=== PATIENT | female | born 2000 | race American Indian/Alaskan Native ===

== ENCOUNTER 2021-01-13 09:46 | Inpatient (IN) | payer MEDICAID, OTHER ==
--- NOTE | 2021-01-13 09:54 | Emergency Department Report ---
ED General Adult HPI - General Stated complaint: VAGINAL BLEEDING, ABD PAIN Time Seen by Provider: 01/13/21 09:53 ED Review of Systems ROS: Stated complaint: VAGINAL BLEEDING, ABD PAIN Other details as noted in HPI Critical care attestation.: If time is entered above; I have spent that time in minutes in the direct care of this critically ill patient, excluding procedure time. ED Disposition Condition: Stable
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
[2021-01-13] MEDS ORDERED: ACETAMINOPHEN W/CODEINE 300-30 MG TAB PO ONE (10:30)
--- NOTE | 2021-01-13 10:46 | Ultrasound Report ---
ULTRASOUND PELVIS INDICATION: pain and bleeding. TECHNIQUE: Transabdominal. Duplex Color Doppler used: Yes. COMPARISON: None available FINDINGS: Uterus: Present. Size: 10.2 x 4.5 x 5.7 cm. Endometrial complex: Mildly thickened measuring 1 cm. No intrauterine . Mass lesions: None. Additional findings: None. Right Ovary -- Normal. Blood flow: Normal. Cyst or mass: None. Left Ovary-- Normal. Blood flow: Normal. Cyst or mass: None. Urinary Bladder: Normal. Free Fluid: None. Additional Findings: None. IMPRESSION: 1. No intrauterine seen on transabdominal imaging. Patient refused transvaginal imaging. 2. No adnexal abnormality. Signer Name: Jeremisa Garcia MD Signed: 01/13/2021 10:42 AM Workstation Name: [id number]
[2021-01-13 10:52] LABS: Basophils % (Auto) 0.3 % (0.0-1.8); Eosinophils % (Auto) 0.1 % (0.0-4.3); Hemoglobin 9.3 gm/dl (10.1-14.3); Lymphocytes % (Auto) 11.9 % (13.4-35.0); Mean Corpuscular HGB Conc 32 % (30-34); Mean Corpuscular Volume 83 fl (79-97); Monocytes # (Auto) 1.4 K/mm3 (0.0-0.8); Platelet Count 318 K/mm3 (140-440); Red Cell Distribution Width 19.3 % (13.2-15.2)
[2021-01-13 12:00] LABS: Alanine Aminotransferase 6 units/L (7-56); Albumin 4.1 g/dL (3.9-5); Blood Urea Nitrogen 7 mg/dL (7-17); Hemolysis Index 0
[2021-01-13 12:10] LABS: BUN/Creatinine Ratio 14
[2021-01-13] MEDS ORDERED: ONDANSETRON 4 MG/2 ML INJ IV ONE (12:37)
[2021-01-13] MEDS ORDERED: HYDROmorphone 1 MG/1 ML INJ IV ONE (12:37)
[2021-01-13] MEDS ORDERED: SODIUM CHLORIDE 0.9% 1000 ML IV SOLN IV ONE (12:38)
[2021-01-13] MEDS ORDERED: ACETAMINOPHEN 325 MG TAB PO STA (12:39)
--- NOTE | 2021-01-13 12:41 | Emergency Department Report ---
ED General Adult HPI - General Chief complaint: Vaginal Bleeding Stated complaint: VAGINAL BLEEDING, ABD PAIN PUI?: No Time Seen by Provider: 01/13/21 09:53 Source: patient, RN notes reviewed Mode of arrival: Ambulatory Limitations: No Limitations - History of Present Illness Initial comments: The patient was evaluated in the emergency department for symptoms described in the history of present illness. He/she was evaluated in the context of the global COVID-19 pandemic, which necessitated consideration that the patient margarita ht be at risk for infection with the virus that causes COVID-19. Institutional protocols and algorithms that pertain to the evaluation of patients at risk for COVID-19 are in a state of rapid change based on information released by regulatory bodies including the CDC and federal and state organizations. These policies and algorithms were followed during the patient's care in the emergency department. Please note that these policies, procedures and recommendations changed on a rapid basis. During the history and physical examination, I am chaperoned by nurse Concepcion Mcduffie The patient is a 20-year-old female. She is not known to myself previously. She is 1, para 0. She thinks she is approximately 7 weeks . She does not have a private [employer] OPERATOR physician. She presents to the ER today with a complaint of painful vaginal bleeding. She has been having vaginal bleeding since last week. She reports being seen at [facility] last week, presumptively diagnosed with threatened miscarriage, and reports having had an ultrasound last week, which demonstrated an intr auterine . She presents today with persistent vaginal bleeding, "too many pads to count." Denies headache, neck pain, chest pain, shortness of breath, dysuria, loss of taste and smell. She also has diffuse lower abdominal pain. The pain is sharp and throbbing. It increases with palpation. It decreases with rest. She is not had any Covid exposure or contacts that she is aware of. -: Gradual, days(s) Location: abdomen Quality: aching Consistency: constant Improves with: rest Worsens with: movement - Related Data Allergies Allergy/AdvReac Type Severity Reaction Status Date / Time shellfish derived AdvReac Anaphylaxis Verified 01/13/21 09:57 ED Review of Systems ROS: Stated complaint: VAGINAL BLEEDING, ABD PAIN Other details as noted in HPI Constitutional: fever, malaise, weakness Eyes: denies: eye discharge ENT: denies: epistaxis Respiratory: denies: cough, shortness of breath Gastrointestinal: abdominal pain Genitourinary: abnormal menses, other (Vaginal bleeding). denies: dysuria Neurological: weakness Psychiatric: anxiety Hematological/Lymphatic: denies: easy bleeding ED Past Medical Hx - Past Medical History Previous Medical History?: No - Surgical History Past Surgical History?: No - Social History Smoking Status: Never Smoker Substance Use Type: Marijuana ED Physical Exam - General Limitations: No Limitations General appearance: alert, anxious, in distress, obese - Head Head exam: Present: atraumatic, normocephalic - Eye Eye exam: Present: normal appearance, EOMI. Absent: nystagmus - ENT ENT exam: Present: normal exam, normal orophraynx, mucous membranes moist, normal external ear exam - Neck Neck exam: Present: normal inspection, full ROM. Absent: tenderness, meningi smus - Respiratory Respiratory exam: Present: normal lung sounds bilaterally. Absent: respiratory distress, wheezes, rales, rhonchi, stridor, decreased breath sounds - Cardiovascular Cardiovascular Exam: Present: regular rate, tachycardia, normal heart sounds. Absent: bradycardia, irregular rhythm, systolic murmur, diastolic murmur, rubs, gallop - GI/Abdominal GI/Abdominal exam: Present: soft, tenderness, other (There is mild bilateral lower quadrant abdominal tenderness. Most prominent in the right lower quadrant). Absent: distended, guarding, rebound, rigid, pulsatile mass - External exam: Present: normal external exam, bleeding, other (Chaperoned by nurse Concepcion Mcduffie) Bi-manual exam: Present: cervical motion tendernes, adnexal tenderness, uterine tenderness - Extremities Exam Extremities exam: Present: normal inspection, full ROM, other (2+ pulses noted in the bilateral upper and lower extremities. There is no palpable cord. negative Homans sign. Muscular compartments are soft. The pelvis is stable.). Absent: pedal edema, calf tenderness - Back Exam Back exam: Present: normal inspection. Absent: tenderness, CVA tenderness (R), CVA tenderness (L), paraspinal tenderness, vertebral tenderness - Neurological Exam Neurological exam: Present: alert, other (No facial droop. Tongue midline. Extraocular movements intact bilaterally. Facial sensation intact to light touch in V1, V2, V3 distribution bilaterally. 5 and a 5 strength in 4 extremities. Sensation intact to light touch in 4 extremities.). Absent: motor sensory deficit - Psychiatric Psychiatric exam: Present: anxious - Skin Skin exam: Present: warm, dry, intact, normal color. Absent: rash ED Course Vital Signs 01/13/21 01/13/21 01/13/21 09:51 12:45 13:00 Temperature 101 F H Pulse Rate 123 H 90 107 H Respiratory 20 14 13 Rate Blood Pressure 110/74 112/59 O2 Sat by Pulse 97 100 100 Oximetry 01/13/21 01/13/21 01/13/21 13:02 13:33 13:45 Temperature Pulse Rate 107 H 123 H Respiratory 17 35 H 33 H Rate Blood Pressure 112/59 112/59 O2 Sat by Pulse 100 100 Oximetry 01/13/21 01/13/21 01/13/21 14:32 15:21 15:23 Temperature 99.9 F H Pulse Rate 109 H Respiratory 20 17 Rate Blood Pressure 112/59 O2 Sat by Pulse Oximetry - Reevaluation(s) Reevaluation #1: 01/13/21 13:04 Differential diagnosis, including but not limited to: Septic , appendicitis, urinary tract infection, intra-abdominal infection Assessment and plan: 20-year-old female, presenting with probable septic , manifest by no intrauterine on ultrasound, tachycardia, fever, and leukocytosis. As per recommendations from up-to-date, Zosyn is acceptable monotherapy antibiotic. Patient be resuscitated according to our sepsis pathway. She is amenable to transvaginal ultrasound, after appropriate counseling for myself. We will also obtain CT scan of the abdomen pelvis to exclude alternative pathology. Does not disclose any Covid symptomatology. Have discussed with Zoë, nursing medical office asst, working with our back strip machine operator, Dr. Garibay. They request call back once diagnostics have resulted. I have also discussed this plan of care with the patient, who articulated understanding, and who is amenable to the aforementioned interventions. Reevaluation #2: 01/13/21 14:31 CT scan abdomen pelvis negative for appendicitis. Retained products of conception are suggested. Have discussed with gynecology, Dr. Garibay. She is going to come by to evaluate the patient. She anticipates taking the patient to the operating room for dilatation and curettage. She requests infectious disease consult. 01/13/21 15:37 Dr Garibay to admit to her service Transvaginal ultrasound is reviewed and appreciated - Consultations Consultation #1: 01/13/21 15:01 Discussed the patient's history, physical, pertinent laboratory studies and imaging studies and clinical impression with infectious disease on-call, Dr. Hamilton. His group agrees to follow in consultation. They are also in agreement with Zosyn as monotherapy antibiotic. ED Medical Decision Making - Lab Data Result diagrams: 01/13/21 10:11 01/13/21 10:11 Vital Signs 01/13/21 01/13/21 01/13/21 09:51 12:45 13:02 Temperature 101 F H Pulse Rate 123 H 90 Respiratory 20 14 17 Rate Blood Pressure 110/74 O2 Sat by Pulse 97 100 Oximetry Lab Results 01/13/21 01/13/21 01/13/21 Range/Units 10:11 10:11 10:11 WBC 17.1 H (4.5-11.0) K/mm3 RBC 3.50 L (3.65-5.03) M/mm3 Hgb 9.3 L (10.1-14.3) gm/dl Hct 29.0 L (30.3-42.9) % MCV 83 (79-97) fl MCH 27 L (28-32) pg MCHC 32 (30-34) % RDW 19.3 H (13.2-15.2) % Plt Count 318 (140-440) K/mm3 Lymph % (Auto) 11.9 L (13.4-35.0) % Clark % (Auto) 8.0 H (0.0-7.3) % Eos % (Auto) 0.1 (0.0-4.3) % Baso % (Auto) 0.3 (0.0-1.8) % Lymph # (Auto) 2.0 (1.2-5.4) K/mm3 [place] # (Auto) 1.4 H (0.0-0.8) K/mm3 Eos # (Auto) 0.0 (0.0-0.4) K/mm3 Baso # (Auto) 0.0 (0.0-0.1) K/mm3 Seg Neutrophils % 79.7 H (40.0-70.0) % Seg Neutrophils # 13.7 H (1.8-7.7) K/mm3 Sodium 135 L (137-145) mmol/L Potassium 3.5 L (3.6-5.0) mmol/L Chloride 101.9 (98-107) mmol/L Carbon Dioxide 21 L (22-30) mmol/L Anion Gap 16 mmol/L BUN 7 (7-17) mg/dL Creatinine 0.5 L (0.6-1.2) mg/dL Estimated GFR > 60 ml/min BUN/Creatinine Ratio 14 % Glucose 113 H (65-100) mg/dL Lactic Acid (0.7-2.0) mmol/L Calcium 9.0 (8.4-10.2) mg/dL Total Bilirubin 0.40 (0.1-1.2) mg/dL AST 10 (5-40) units/L ALT 6 L (7-56) units/L Alkaline Phosphatase 76 (35-129) units/L Total Protein 7.4 (6.3-8.2) g/dL Albumin 4.1 (3.9-5) g/dL Albumin/Globulin Ratio 1.2 % Lipase 13 (13-60) units/L HCG, Quant 1296 H (0-4) mIU/mL Blood Type 01/13/21 01/13/21 Range/Units 10:11 10:11 WBC (4.5-11.0) K/mm3 RBC (3.65-5.03) M/mm3 Hgb (10.1-14.3) gm/dl Hct (30.3-42.9) % MCV (79-97) fl MCH (28-32) pg MCHC (30-34) % RDW (13.2-15.2) % Plt Count (140-440) K/mm3 Lymph % (Auto) (13.4-35.0) % Clark % (Auto) (0.0-7.3) % Eos % (Auto) (0.0-4.3) % Baso % (Auto) (0.0-1.8) % Lymph # (Auto) (1.2-5.4) K/mm3 Clark # (Auto) (0.0-0.8) K/mm3 Eos # (Auto) (0.0-0.4) K/mm3 Baso # (Auto) (0.0-0.1) K/mm3 Seg Neutrophils % (40.0-70.0) % Seg Neutrophils # (1.8-7.7) K/mm3 Sodium (137-145) mmol/L Potassium (3.6-5.0) mmol/L Chloride (98-107) mmol/L Carbon Dioxide (22-30) mmol/L Anion Gap mmol/L BUN (7-17) mg/dL Creatinine (0.6-1.2) mg/dL Estimated GFR ml/min BUN/Creatinine Ratio % Glucose (65-100) mg/dL Lactic Acid 0.70 (0.7-2.0) mmol/L Calcium (8.4-10.2) mg/dL Total Bilirubin (0.1-1.2) mg/dL AST (5-40) units/L ALT (7-56) units/L Alkaline Phosphatase (35-129) units/L Total Protein (6.3-8.2) g/dL Albumin (3.9-5) g/dL Albumin/Globulin Ratio % Lipase (13-60) units/L HCG, Quant (0-4) mIU/mL Blood Type AB POSITIVE - Radiology Data Radiology results: pending, report reviewed, image reviewed [facility] [address] [place] [address] Ultrasound Report Signed Patient: WYATT KELLY MR#: [id number] : 2000 Acct:[id number] Age/Sex: 20 / F ADM Date: 01/13/21 Loc: ED Attending Dr: Ordering Physician: LINDA INFANTE Date of Service: 01/13/21 Procedure(s): US OB <= 14 weeks fetus Accession Number(s): [id number] cc: LINDA INFANTE ULTRASOUND PELVIS INDICATION: pain and bleeding. TECHNIQUE: Trans abdominal. Duplex Color Doppler used: Yes. COMPARISON: None available FINDINGS: Uterus: Present. Size: 10.2 x 4.5 x 5.7 cm. Endometrial complex: Mildly thickened measuring 1 cm. No intrauterine . Mass lesions: None. Additional findings: None. Right Ovary -- Normal. Blood flow: Normal. Cyst or mass: None. Left Ovary-- Normal. Blood flow: Normal. Cyst or mass: None. Urinary Bladder: Normal. Free Fluid: None. Additional Findings: None. IMPRESSION: 1. No intrauterine seen on transabdominal imaging. Patient refused transvaginal imaging. 2. No adnexal abnormality. Signer Name: Jeremias Garcia MD Signed: 01/13/2021 10:42 AM Workstation Name: [id number] Transcribed By: ES Dictated By: Jeremias Garcia MD Electronically Authenticated By: Jeremias Garcia MD Signed Date/Time: 01/13/21 1042 [facility] [address] [place] [address] Cat Scan Report Signed Patient: WYATT KELLY MR#: [id number] : 2000 Acct:[id number] Age/Sex: 20 / F ADM Date: 01/13/21 Loc: ED Attending Dr: Ordering Physician: VANESSA AGRZON MD Date of Service: 01/13/21 Procedure(s): CT abdomen pelvis w con Accession Number(s): [id number] cc: VANESSA GARZON MD CT ABDOMEN AND PELVIS WITH CONTRAST INDICATION / CLINICAL INFORMATION: Right lower quadrant pain. TECHNIQUE: Axial CT images were obtained through the abdomen and pelvis after 100 cc of Omnipaque [address] scans at this location are performed using CT dose reduction for ALARA by means of automated exposure control. COMPARISON: None available. FINDINGS: LOWER CHEST: No significant abnormality. LIVER: No significant abnormality. GALLBLADDER: No significant abnormality. BILE DUCTS: No significant abnormality. PANCREAS: No significant abnormality. SPLEEN: No significant abnormality. ADRENALS: No significant abnormality. RIGHT KIDNEY / URETER: No significant abnormality. LEFT KIDNEY / URETER: No significant abnormality. STOMACH / SMALL BOWEL: No significant abnormality. COLON: No significant abnormality. APPENDIX: No significant abnormality. PERITONEUM: No free fluid. No free air. No fluid collection. LYMPH NODES: No significant adenopathy. AORTA / ARTERIES: No significant abnormality. IVC / VEINS: No significant abnormality. URINARY BLADDER: No significant abnormality. REPRODUCTIVE ORGANS: There is fluid in the endometrial cavity and endocervical canal. ADDITIONAL FINDINGS: None. SKELETAL SYSTEM: No significant abnormality. IMPRESSION: 1. There is no obstruction, inflammation, or free air. There are no abnormal fluid collections. The appendix is unremarkable. 2. There appears to be some fluid in the endometrial cavity and in the cervical canal. Signer Name: Brandan Jamison MD Signed: 01/13/2021 2:13 PM Workstation Name: [id number] Transcribed By: SS Dictated By: Brandan Jamison MD Electronically Authenticated By: Brandan Jamison MD Signed Date/Time: 01/13/21 1413 DD/ 1408 Critical Care Time: Yes Critical care time in (mins) excluding proc time.: 35 Critical care attestation.: If time is entered above; I have spent that time in minutes in the direct care of this critically ill patient, excluding procedure time. ED Disposition Clinical Impression: with sepsis, Miscarriage, Body mass index (BMI) of 50-59.9 in adult Disposition: DC-09 OP ADMIT IP TO THIS HOSP Is pt being admited?: Yes Does the pt Need Aspirin: No Condition: Serious Referrals: PRIMARY CAREMD [Primary Care Provider] - 3-5 Days
[2021-01-13] MEDS ORDERED: PIPERACIL/TAZOBACTA 4.5/NS 100 4.5 GM/100 ML VIAL IV ONE (12:52)
--- NOTE | 2021-01-13 14:18 | Cat Scan Report ---
CT ABDOMEN AND PELVIS WITH CONTRAST INDICATION / CLINICAL INFORMATION: Right lower quadrant pain. TECHNIQUE: Axial CT images were obtained through the abdomen and pelvis after 100 cc of Omnipaque [address] scans at this location are performed using CT dose reduction for ALARA by means of automated exposure control. COMPARISON: None available. FINDINGS: LOWER CHEST: No significant abnormality. LIVER: No significant abnormality. GALLBLADDER: No significant abnormality. BILE DUCTS: No significant abnormality. PANCREAS: No significant abnormality. SPLEEN: No significant abnormality. ADRENALS: No significant abnormality. RIGHT KIDNEY / URETER: No significant abnormality. LEFT KIDNEY / URETER: No significant abnormality. STOMACH / SMALL BOWEL: No significant abnormality. COLON: No significant abnormality. APPENDIX: No significant abnormality. PERITONEUM: No free fluid. No free air. No fluid collection. LYMPH NODES: No significant adenopathy. AORTA / ARTERIES: No significant abnormality. IVC / VEINS: No significant abnormality. URINARY BLADDER: No significant abnormality. REPRODUCTIVE ORGANS: There is fluid in the endometrial cavity and endocervical canal. ADDITIONAL FINDINGS: None. SKELETAL SYSTEM: No significant abnormality. IMPRESSION: 1. There is no obstruction, inflammation, or free air. There are no abnormal fluid collections. The a ppendix is unremarkable. 2. There appears to be some fluid in the endometrial cavity and in the cervical canal. Signer Name: Brandan Jamison MD Signed: 01/13/2021 2:13 PM Workstation Name: [id number]
--- NOTE | 2021-01-13 15:24 | Ultrasound Report ---
Pelvic Ultrasound HISTORY: Pelvic pain, vaginal bleeding. TECHNIQUE: Grayscale and color imaging performed. COMPARISON: Earlier today FINDINGS: Endovaginal imaging was performed. Endometrial echocomplex measures 1.2 cm. No intrauterine gestation identified. Both ovaries are vineet l in size with probable functional cyst on the left. No free fluid identified. IMPRESSION: 1. No intrauterine gestation identified. 2. Probable functional cyst in the left ovary. No pelvic free fluid identified on this exam. 3. Please see transabdominal exam from today for further details. Signer Name: Luc Quiroga MD Signed: 01/13/2021 3:20 PM Workstation Name: [id number]
--- NOTE | 2021-01-13 15:28 | History and Physical Report ---
History of Present Illness Date of examination: 01/13/21 Chief complaint: Pelvic pain vaginal bleeding History of present illness: This is a 20-year-old female 1 para 0 with a history of vaginal bleeding that started approximately 2 weeks ago. Patient was evaluated at [facility] December 28, 2019 at which time her blood test was 700. She had multiple visits thereafter with her last visit being January 08 where she was diagnosed with an intrauterine at 6 weeks and 2 days with a heart rate of 129 and a quantitative beta-hCG of 24,000. Patient states she has had persistent vaginal bleeding that became worse. She says she had sex approximately 1 to 2 weeks ago. Because of persistent bleeding and worsening of her pelvic pain she presented to [facility]. Her evaluation at this time is reveals a quantitative beta-hCG of approximately 1300, thickened tissue in the endometrium and cervix, elevated white blood cell count and a temperature of 101 C. Findings are concerning for septic . Patient is admitted now for evacuation of uterine tissue and IV antibiotics. Patient denies any instrumentation of the vagina or uterus. Past History Past Medical History: other (Asthma, anxiety) Past Surgical History: tonsillectomy Medications and Allergies Allergies Allergy/AdvReac Type Severity Reaction Status Date / Time shellfish derived AdvReac Anaphylaxis Verified 01/13/21 09:57 Review of Systems All systems: negative Genitourinary Female: pelvic pain, abnormal vaginal bleeding Exam - Constitutional Vitals: Temp Pulse Resp BP Pulse Ox 99.9 F H 109 H 17 112/59 100 01/13/21 15:23 01/13/21 15:21 01/13/21 15:21 01/13/21 15:21 01/13/21 13:45 - Abdominal Female genitourinary: Present: deferred (EUA however moderate blood noted on the vaginal probe at the end of the exam.) - Psychiatric Psychiatric: appropriate mood/affect, intact judgment & insight, memory intact, cooperative Results - Labs CBC & Chem 7: 01/13/21 10:11 01/13/21 10:11 Labs: Abnormal lab results 01/13/21 01/13/21 01/13/21 Range/Units 10:11 10:11 10:11 WBC 17.1 H (4.5-11.0) K/mm3 RBC 3.50 L (3.65-5.03) M/mm3 Hgb 9.3 L (10.1-14.3) gm/dl Hct 29.0 L (30.3-42.9) % MCH 27 L (28-32) pg RDW 19.3 H (13.2-15.2) % Lymph % (Auto) 11.9 L (13.4-35.0) % [place] % (Auto) 8.0 H (0.0-7.3) % [place] # (Auto) 1.4 H (0.0-0.8) K/mm3 Seg Neutrophils % 79.7 H (40.0-70.0) % Seg Neutrophils # 13.7 H (1.8-7.7) K/mm3 Sodium 135 L (137-145) mmol/L Potassium 3.5 L (3.6-5.0) mmol/L Carbon Dioxide 21 L (22-30) mmol/L Creatinine 0.5 L (0.6-1.2) mg/dL Glucose 113 H (65-100) mg/dL ALT 6 L (7-56) units/L HCG, Quant 1296 H (0-4) mIU/mL - Imaging and Cardiology CT scan - pelvis: report reviewed US - abdomen: report reviewed, image reviewed Assessment and Plan - Patient Problems (1) with sepsis Current Visit: Yes Status: Acute Plan to address problem: Diagnosis and plan of care discussed with patient. Uterine evacuation and cervical dilation explained. Discussed risk, including but not limited to, bleeding infection injury to her bowel bladder or adjacent organs. Also disc ussed possible uterine perforation and development of uterine adhesions that potentially could make becoming difficult. Also discussed options of observation with IV antibiotics how ever explained should she feel antibiotic therapy her condition could deteriorate significantly to the point where she may require hysterectomy in order to save her life. Questions were encouraged and answered. She voiced understanding and desires to proceed with surgical removal of tissue and admission for IV therapy. Consents were reviewed and signed. (2) Body mass index (BMI) of 50-59.9 in adult Current Visit: Yes Status: Acute (3) Miscarriage Current Visit: Yes Status: Acute
[2021-01-13] MEDS ORDERED: LACTATED RINGERS 1,000 ML ONE (15:49)
--- NOTE | 2021-01-13 15:58 | Anesthesia Day of Surgery ---
Anesthesia Day of Surgery - Day of Surgery Patient Examined: Yes Patient H&P Reviewed: Yes Patient is NPO: Yes (Rosie @ 0900. Sips of water > 2 hours ago)
[2021-01-13] MEDS ORDERED: dexAMETHasone 20 MG/5 ML VIAL ONE (16:02)
[2021-01-13] MEDS ORDERED: ONDANSETRON 4 MG/2 ML INJ ONE (16:02)
--- NOTE | 2021-01-13 16:02 | Anesthesia Consultation ---
Anesthesia Consult and Med Hx Date of service: 01/13/21 - Airway Anesthetic Teeth Evaluation: Chipped ROM Head & Neck: Adequate Mental/Hyoid Distance: Adequate Mallampati Class: Class II Intubation Access Assessment: Probably Good - Pre-Operative Health Status ASA Pre-Surgery Classification: ASA3, Emergency Proposed Anesthetic Plan: General - Pulmonary Hx Smoking: Yes (MJ) Hx Asthma: Yes (Stable) Hx Respiratory Symptoms: No - Cardiovascular System Hx Hypertension: No - Central Nervous System Hx Psychiatric Problems: Yes (Anxiety) - Gastrointestinal Hx Gastroesophageal Reflux Disease: No - Endocrine Hx Renal Disease: No Hx Non-Insulin Dependent Diabetes: No Hx Thyroid Disease: No - Hematic Hx Anemia: Yes Hx Sickle Cell Disease: No - Other Systems Hx Substance Use: Yes (MJ) Hx Obesity: Yes (BMI 50)
[2021-01-13] MEDS ORDERED: METHYLERGONOVINE MALEATE 0.2 MG/ML VIAL IM ONE ×2 (16:04→16:10)
[2021-01-13] MEDS ORDERED: SODIUM CHLORIDE 0.9% IRR 1,500 ML BOTTLE IR ONE (16:10)
[2021-01-13] MEDS ORDERED: ONDANSETRON 4 MG/2 ML INJ IV PRN (16:26)
[2021-01-13] MEDS ORDERED: HYDROmorphone 1 MG/1 ML INJ IV PRN (16:26)
[2021-01-13] MEDS: HYDROmorphone 1 MG/1 ML INJ IV PRN ×4 (16:30→17:00)
--- NOTE | 2021-01-13 16:53 | Operative Report ---
Operative Report Operative Report: PREOPERATIVE DIAGNOSES: 1. Septic 2. Body mass index 50 kg/m 3. Asthma 4. Anxiety 5. Anemia POSTOPERATIVE DIAGNOSES: 1. Septic 2. Body mass index 50 kg/m 3. Asthma 4. Anxiety 5. Anemia PROCEDURE PERFORMED: 1. Cervical dilation 2. Uterine vacuum aspiration ANESTHESIA: General ESTIMATED BLOOD LOSS: Less than 50 cc. INDICATIONS: This is a 20-year-old female that presents septic . PROCEDURE: The patient was seen in the preoperative suite. Expected procedure and postoperative course discussed with her. She was taken to the operative suite where general anesthesia was performed. She was placed in a dorsal lithotomy position. . A bimanual exam was done, the uterus was unable to be palpated due to body habitus.. She was prepped and draped in the normal sterile fashion. Timeout was performed. Her bladder was drained with the red Whiteside catheter which produced approximately 10 cc of clear yellow urine. The cervix and vagina were grossly normal with no obvious masses or deformities. A bivalve operative speculum was placed in the vagina and the anterior lip of the cervix was grasped with the single-tooth tenaculum. The uterus was sounded to ~9 cm. The cervix was progressively dilated to allow 9 mm curved Vacurette. The Vacurette was placed intrauterine very carefully using anterior wall for guidance. Using approximately 55 mmHg pressure, tissue was removed from the uterus. The specimen was collected and sent to pathology for evaluation, permanent. A culture was obtained from the products of conception and also sent to the laboratory. No evidence of perforation was noted. At this point procedure was ended. The single-tooth tenaculum and speculum were removed. The cervix was found to be hemostatic. Uterine massage was attempted to be performed. Methergine was given to ensure hemostasis. No vaginal bleeding was noted at the end of the procedure. Counts were correct. Patient was taken to the PACU stable. Tissue obtained with the Vacurette was sent to pathology for permanent evaluation.
--- NOTE | 2021-01-13 17:22 | Post Anesthesia Evaluation ---
- Post Anesthesia Evaluation Patient Participated: Yes Airway Patent: Yes Stable Respiratory Function: Yes Nausea/Vomiting: No Temp > 96.8F: Yes Pain Manageable: Yes Adequeate Hydration: Yes Anesthesia Complications: No Block Receding Appropriately: Not Applicable Patient on Ventilator: No
[2021-01-13] MEDS ORDERED: ONDANSETRON 4 MG ODT TAB PO PRN (17:49)
[2021-01-13] MEDS ORDERED: LACTATED RINGERS 1,000 ML IV SCH (17:49)
[2021-01-13] MEDS ORDERED: METOCLOPRAMIDE 10 MG TAB PO PRN (17:49)
[2021-01-13] MEDS ORDERED: MORPHINE 2 MG/1 ML INJ IV PRN (17:49)
[2021-01-13] MEDS: IBUPROFEN 800 MG TAB PO SCH (18:29)
[2021-01-13] MEDS ORDERED: diphenhydrAMINE 50 MG CAP PO NR (20:00)
[2021-01-13] MEDS: PIPERACIL/TAZOBACTA 4.5/NS 100 4.5 GM/100 ML VIAL IV SCH (23:38)
[2021-01-13] MEDS: oxyCODONE /ACETAMINOPHEN 5-325MG TAB PO SCH (23:45)
[2021-01-14] MEDS: oxyCODONE /ACETAMINOPHEN 5-325MG TAB PO SCH ×2 (02:30→08:38)
[2021-01-14 04:38] LABS: Basophils % (Auto) 0.5 % (0.0-1.8); Eosinophils % (Auto) 0.2 % (0.0-4.3); Hematocrit 27.7 % (30.3-42.9); Hemoglobin 9.3 gm/dl (10.1-14.3); Lymphocytes % (Auto) 11.5 % (13.4-35.0); Mean Corpuscular HGB Conc 34 % (30-34); Mean Corpuscular Volume 82 fl (79-97); Monocytes % (Auto) 3.9 % (0.0-7.3); Platelet Count 307 K/mm3 (140-440); Red Blood Count 3.36 M/mm3 (3.65-5.03); Red Cell Distribution Width 19.7 % (13.2-15.2)
[2021-01-14 04:39] LABS: Basophils # (Auto) 0.1 K/mm3 (0.0-0.1); Lymphocytes # (Auto) 1.2 K/mm3 (1.2-5.4); Monocytes # (Auto) 0.4 K/mm3 (0.0-0.8)
[2021-01-14] MEDS: IBUPROFEN 800 MG TAB PO SCH ×2 (04:44→16:17)
[2021-01-14 05:04] LABS: Bilirubin,Urine NEG (Negative); Blood,Urine LG (Negative); Color,Urine Yellow (Yellow); Mucus,Urine FEW /HPF; Urobilinogen,Urine < 2.0 mg/dL (<2.0)
[2021-01-14 05:05] LABS: RBC,Urine > 182.0 /HPF (0.0-6.0)
[2021-01-14] MEDS: PIPERACIL/TAZOBACTA 4.5/NS 100 4.5 GM/100 ML VIAL IV SCH ×2 (07:52→16:17)
--- NOTE | 2021-01-14 10:09 | Progress Note ---
Assessment and Plan - Patient Problems (1) with sepsis Current Visit: Yes Status: Acute Plan to address problem: Informed she will probably be allowed home tomorrow if afebrile and tolerating po. She voiced understanding (2) Body mass index (BMI) of 50-59.9 in adult Current Visit: Yes Status: Acute (3) Miscarriage Current Visit: Yes Status: Acute Subjective Date of service: 01/14/21 Patient Reports: Positive: no new complaints, feels better, tolerating a regular diet, voiding w/o difficulty Objective Vital Signs - 12hr 01/13/21 01/14/21 01/14/21 23:45 00:30 04:00 Temperature 98.6 F 98 F Pulse Rate 73 74 Respiratory 18 16 16 Rate Blood Pressure Blood Pressure 106/78 112/75 [Left] O2 Sat by Pulse Oximetry 01/14/21 01/14/21 04:44 07:47 Temperature 97.9 F Pulse Rate 88 Respiratory 18 18 Rate Blood Pressure 141/84 Blood Pressure [Left] O2 Sat by Pulse 99 Oximetry - Labs 01/14/21 04:22 01/13/21 10:11 Diabetes panel 01/13/21 Range/Units 10:11 Sodium 135 L (137-145) mmol/L Potassium 3.5 L (3.6-5.0) mmol/L Chloride 101.9 (98-107) mmol/L Carbon Dioxide 21 L (22-30) mmol/L BUN 7 (7-17) mg/dL Creatinine 0.5 L (0.6-1.2) mg/dL Glucose 113 H (65-100) mg/dL Calcium 9.0 (8.4-10.2) mg/dL AST 10 (5-40) units/L ALT 6 L (7-56) units/L Alkaline Phosphatase 76 (35-129) units/L Total Protein 7.4 (6.3-8.2) g/dL Albumin 4.1 (3.9-5) g/dL Calcium panel 01/13/21 Range/Units 10:11 Calcium 9.0 (8.4-10.2) mg/dL Albumin 4.1 (3.9-5) g/dL Pituitary panel 01/13/21 Range/Units 10:11 Sodium 135 L (137-145) mmol/L Potassium 3.5 L (3.6-5.0) mmol/L Chloride 101.9 (98-107) mmol/L Carbon Dioxide 21 L (22-30) mmol/L BUN 7 (7-17) mg/dL Creatinine 0.5 L (0.6-1.2) mg/dL Glucose 113 H (65-100) mg/dL Calcium 9.0 (8.4-10.2) mg/dL Adrenal panel 01/13/21 Range/Units 10:11 Sodium 135 L (137-145) mmol/L Potassium 3.5 L (3.6-5.0) mmol/L Chloride 101.9 (98-107) mmol/L Carbon Dioxide 21 L (22-30) mmol/L BUN 7 (7-17) mg/dL Creatinine 0.5 L (0.6-1.2) mg/dL Glucose 113 H (65-100) mg/dL Calcium 9.0 (8.4-10.2) mg/dL Total Bilirubin 0.40 (0.1-1.2) mg/dL AST 10 (5-40) units/L ALT 6 L (7-56) units/L Alkaline Phosphatase 76 (35-129) units/L Total Protein 7.4 (6.3-8.2) g/dL Albumin 4.1 (3.9-5) g/dL
--- NOTE | 2021-01-14 13:13 | Consultation ---
History of Present Illness - Reason for Consult Consult date: 01/14/21 Septic Requesting physician: VANESSA GARZON - History of Present Illness The patient is a 20-year-old female admitted to the hospital with pelvic pain and vaginal bleeding, she was recently . Noted to have fever. Admitted with concerns of septic . Started on IV Zosyn. ID was consulted for antibiotic recommendations. Yesterday evening, she underwent cervical dilation and uterine vacuum aspiration. She is afebrile today and feels well today. Past History Past Medical History: other (Asthma, anxiety) Past Surgical History: tonsillectomy Medications and Allergies Allergies Allergy/AdvReac Type Severity Reaction Status Date / Time shellfish derived AdvReac Anaphylaxis Verified 01/13/21 09:57 Active Meds: Active Medications Acetaminophen (Acetaminophen 500 Mg Tab) 1,000 mg PO Q6H PRN PRN Reason: Pain Mild (1-3)/FEVER>100.5/FERMIN Lactated Ringer's (Lactated Ringers) 1,000 mls @ 75 mls/hr IV DIRECT PAOLA Last Admin: 01/14/21 04:43 Dose: 75 mls/hr Documented by: Piperacillin Sod/Tazobactam Sod (Zosyn/Ns 4.5gm/100ml) 4.5 gm in 100 mls @ 200 mls/hr IV Q8HR PAOLA; Protocol Last Admin: 01/14/21 07:52 Dose: 200 mls/hr Documented by: Ibuprofen (Ibuprofen 800 Mg Tab) 800 mg PO Q8H PRN PRN Reason: Pain, Mild (1-3) Metoclopramide HCl (Metoclopramide 10 Mg Tab) 10 mg PO Q6H PRN PRN Reason: Nausea And Vomiting Ondansetron HCl (Ondansetron 4 Mg Odt Tab) 4 mg PO Q8H PRN PRN Reason: Nausea And Vomiting Physical Examination - Physical Exam Narrative exam: Physical Exam: Constitutional: Alert, cooperative. No acute distress Head, Ears, Nose: Normocephalic, atraumatic. External ears, nose normal Eyes: Conjunctivae/corneas clear. No icterus. No ptosis. Neck: Supple, no meningeal signs Cardiovascular: S1, S2 normal. Respiratory: Good air entry, clear to auscultation bilaterally GI: Soft, non-tender; bowel sounds normal. No peritoneal signs Musculoskeletal: No pedal edema, no cyanosis. Skin: No rash or abscess Hem/Lymphatic: No palpable cervical or supraclavicular nodes. No lymphangitis Psych: Mood ok. Affect normal Neurological: Awake, alert, oriented. No gross abnormality - Constitutional Vitals: Vital Signs Temp Pulse Resp BP Pulse Ox 97.9 F 88 18 141/84 99 01/14/21 07:47 01/14/21 07:47 01/14/21 07:47 01/14/21 07:47 01/14/21 07:47 Temperature -Last 24 Hours Temperature 97.9 F Temperature 98 F Temperature 98.6 F Temperature 98.0 F Temperature 98.2 F Temperature 98.4 F Temperature 97.3 F Temperature 99.9 F Results - Labs CBC & Chem 7: 01/14/21 04:22 01/13/21 10:11 Labs: Abnormal lab results 01/14/21 01/14/21 Range/Units 04:22 04:39 RBC 3.36 L (3.65-5.03) M/mm3 Hgb 9.3 L (10.1-14.3) gm/dl Hct 27.7 L (30.3-42.9) % RDW 19.7 H (13.2-15.2) % Lymph % (Auto) 11.5 L (13.4-35.0) % Seg Neutrophils % 83.9 H (40.0-70.0) % Seg Neutrophils # 8.6 H (1.8-7.7) K/mm3 Ur Specific [place] 1.044 H (1.003-1.030) Urine WBC (Auto) 55.0 H (0.0-6.0) /HPF Assessment and Plan Cultures: 01/13/2021 blood culture: No growth A/P: 20/F with recent , now with: #Sepsis/septic : Status post cervical dilatation and uterine vacuum aspiration on 01/13/2021. Leukocytosis resolved. Clinically doing well. Recs: -Continue IV Zosyn for now -If afebrile and blood cultures negative tomorrow, okay to discharge on p.o. Augmentin 875 mg twice daily for 5 days ID will sign off. Please call with questions. Gareth Hamilton MD, FACP [facility] ([facility] O: [phone] F: [phone]
--- NOTE | 2021-01-14 15:31 | Event Note ---
Date: 01/14/21 received call from rn that patient absconded from unit and was reported to be at [employer] getting food. Patient was allowed back on unit by hospital staff. Pt is now asking for pain medication and medication for depression. Order entered for psych consult. Patient states " I just needed some fresh air, I didn't know I couldnt leave." Advised patient if she leaves again, she will be discharged AMA. She can have Motrin for pain. pt has no additional questions. support person at bs.
[2021-01-14] MEDS ORDERED: ACETAMINOPHEN 325 MG TAB PO PRN (16:36)
[2021-01-14] MEDS ORDERED: IBUPROFEN 800 MG TAB PO PRN (16:36)
[2021-01-14] MEDS ORDERED: oxyCODONE /ACETAMINOPHEN 5-325MG TAB PO PRN (16:36)
[2021-01-14] MEDS: ACETAMINOPHEN 500 MG TAB PO PRN (21:44)
[2021-01-15] MEDS: PIPERACIL/TAZOBACTA 4.5/NS 100 4.5 GM/100 ML VIAL IV SCH (00:04)
[2021-01-15 08:57] VITALS: BP 107/55
--- NOTE | 2021-01-15 09:15 | Consultation ---
History of Present Illness - Reason for Consult Consult date: 01/15/21 Reason for consult: MHE Requesting physician: ROZ MCCLELLAN - Chief Complaint Chief complaint: Pelvic pain vaginal bleeding - History of Present Psychiatric Illness Per OBGYN NOte: received call from rn that patient absconded from unit and was reported to be at [employer] getting food. Patient was allowed back on unit by hospital staff. Pt is now asking for pain medication and medication for depress ion. Order entered for psych consult. Patient states " I just needed some fresh air, I didn't know I couldnt leave." Advised patient if she leaves again, she will be discharged AMA. She can have Motrin for pain. pt has no additional questions. support person at bs. PSYCH HPI Patient is a single, unemployed -[place] female with past psychiatric history of ADHD, bipolar and depression and past medical history of asthma who was admitted to the [facility] service due to miscarriage with subsequent psychiatric consult requested for depression. Patient reported that this was her first since the incident where she was told that she was depressed she just has been feeling very down and sad about the event. Patient denies that she is no suicidal ideation homicidal or having auditory or visual hallucinations, she just wanted to be started on something for depression so that she can feel better. Patient states that her current support system is her girlfriend who was present at patient bedside and also her mom was being they are supportive. Patient endorses eating and sleeping well, denies any night disturbances or any hallucinations. PAST PSYCHIATRIC HISTORY Diagnoses: ADHD, bipolar, depression Suicide attempts or Self-harm behavior: None report Prior psychiatric hospitalizations: None report Substance Abuse history: Marijuana Previous psychiatric medications tried: Adderall Outpatient treatment: None reported PAST MEDICAL HISTORY: Asthma Family Psychiatric History: None reported or documented SOCIAL HISTORY Marital Status: Single Living Arrangements: With partner Employment Status: Unemployed Access to guns/weapons: None reported Education: 11th grade History of Abuse: None Legal History: None report REVIEW OF SYSTEMS Constitutional: Negative for weight loss ENT: Negative for stridor Respiratory: Negative for cough or hemoptysis All other systems reviewed and are negative MENTAL STATUS EXAMINATION General Appearance and Behavior: Age appropriate, good hygiene, wearing appropriate clothes, good eye contact, cooperative polite with questioning. Cooperation: Participating/engaged Psychomotor Behavior: unremarkable and within normal limits Mood: depressed Affect and affective range: congruent with mood Thought Process: Fluent/Logical, Thought Content: Within reality, Speech: Normal volume, Regular rate and rhythm, Intellectual Functioning: Average Suicidal Ideation: Denies SI Homicidal Ideation: Denies HI Impulse Control: Unimpaired Insight and Judgment: Normal insight and judgment, Memory: Normal, Attention: Normal, Orientation: Alert, oriented, Assessment and Plan - Psychiatric problem (1) Cognitive and behavioral changes Current Visit: Yes Status: Acute F43.21 Treatment Plan MEDICATIONS: Risks, benefits and alternatives of medications discussed with the patient, questions answered and consent obtained from patient. PSYCHOTHERAPY: Supportive psychotherapy provided MEDICAL: Per primary team DELIRIUM PRECAUTIONS: Please re-orient patient frequently, keep lights on during the day, and minimize benzodiazepines and opiates as these medications could wo rsen patient's confusion. 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 Case discussed with Dr. Donaldson who agrees with current disposition LEGAL STATUS: Voluntary FOLLOW-UP: Will sign off Thank you for the consult. Please contact with any questions and/or concerns. Medications and Allergies Allergies Allergy/AdvReac Type Severity Reaction Status Date / Time shellfish derived AdvReac Anaphylaxis Verified 01/13/21 09:57 Home Medications Medication Instructions Recorded Confirmed Last Taken Type Amoxicillin/K Clav Tab [Augmentin 1 tab PO Q12HR #10 tab 01/14/21 Unknown Rx 875 mg] Ibuprofen [Motrin 800 MG tab] 800 mg PO TID PRN #30 tablet 01/14/21 Unknown Rx Sertraline [Zoloft] 50 mg PO QDAY #30 tablet 01/15/21 Unknown Rx Active Meds: Active Medications Acetaminophen (Acetaminophen 500 Mg Tab) 1,000 mg PO Q6H PRN PRN Reason: Pain Mild (1-3)/FEVER>100.5/FERMIN Last Admin: 01/14/21 21:44 Dose: 1,000 mg Documented by: Lactated Ringer's (Lactated Ringers) 1,000 mls @ 75 mls/hr IV DIRECT PAOLA Last Admin: 01/14/21 04:43 Dose: 75 mls/hr Documented by: Piperacillin Sod/Tazobactam Sod (Zosyn/Ns 4.5gm/100ml) 4.5 gm in 100 mls @ 200 mls/hr IV Q8HR PAOLA; Protocol Last Admin: 01/15/21 00:04 Dose: 200 mls/hr Documented by: Ibuprofen (Ibuprofen 800 Mg Tab) 800 mg PO Q8H PRN PRN Reason: Pain, Mild (1-3) Last Admin: 01/15/21 06:27 Dose: 800 mg Documented by: Metoclopramide HCl (Metoclopramide 10 Mg Tab) 10 mg PO Q6H PRN PRN Reason: Nausea And Vomiting Ondansetron HCl (Ondansetron 4 Mg Odt Tab) 4 mg PO Q8H PRN PRN Reason: Nausea And Vomiting Mental Status Exam - Vital signs Last Vital Signs Temp 98.0 F 01/15/21 07:58 Pulse 77 01/15/21 07:58 Resp 18 01/15/21 07:58 BP 107/55 01/15/21 07:58 Pulse Ox 100 01/15/21 07:58 Results Result Diagrams: 01/14/21 04:22 01/13/21 10:11 All other labs normal. Assessment and Plan - Psychiatric problem (1) Dysfunctional grieving Current Visit: Yes Status: Acute
[2021-01-15] MEDS ORDERED: SERTRALINE 50 MG TAB PO SCH (11:00)
[2021-01-15] MEDS: ACETAMINOPHEN 500 MG TAB PO PRN (12:19)
--- NOTE | 2021-01-15 13:07 | Discharge Summary ---
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 Patient was admitted underwent the above procedure performed by Dr. Garibay without any complications. Patient will be discharged with follow-up in office in 1-2 weeks for postop check. My surgery discharge Patient was admitted and underwent above procedure performed by Dr. Garibay without complications. During her post operative course, the patient received IV antibiotics and a psychiatric consult was done due to the patient possible depression. The patient was cleared from psychiatric standpoint for discharge. Patient had no orthostatic symptoms. Patient was tolerating regular diet and voiding without difficulty at time of discharge. Disposition: DC-01 TO HOME OR SELFCARE Final Discharge Diagnosis (Prints w/discharge instructions): septic Time spent for discharge: 15 minutes - Discharge Diagnoses (1) with sepsis Status: Acute (2) Anxiety Status: Chronic Core Measure Documentation - Palliative Care Palliative Care/ Comfort Measures: Not Applicable - Core Measures Any of the following diagnoses?: none - VTE Discharge Requirements Deep Vein Thrombosis/Pulmonary Embolism Present on Admission: No Has pt received <5 days of overlap therapy or INR<2.0: No - Acute [place] Discharge Requirements Aspirin at discharge: No Reason for no aspirin on DC: Bleeding MG/ARB for LVSD if EF <40%: Not Applicable Beta kristal at discharge: No Reason for no beta kristal on DC: Medical contraindication Statin for LDL = or >100 mg/dl on DC: Not Applicable - Heart Failure Discharge Requirements MG/ARB for LVSD if EF <40%: Not Applicable - Stroke Discharge Requirements Statin for LDL = or >70 mg/dl on DC: Not Applicable Exam - Constitutional Vitals: Temp Pulse Resp BP Pulse Ox 98.0 F 77 18 107/55 100 01/15/21 07:58 01/15/21 07:58 01/15/21 07:58 01/15/21 07:58 01/15/21 07:58 General appearance: Present: no acute distress, well-nourished - Cardiovascular Rhythm: regular - Extremities Extremities: no ischemia - Abdominal General gastrointestinal: Present: soft Female genitourinary: Present: deferred - Rectal Rectal Exam: deferred - Integumentary Integumentary: Present: clear, warm, dry - Neurologic Neurologic: moves all extremities Plan Activity: advance as tolerated Diet: regular Additional Instructions: Patient to call office for any fever, chills, nausea, vomiting or pain not controlled by pain medication. Patient appointment was made in office for a postoperative follow-up Care Plan Goals: [x] Smoking cessation referral if applicable(refer to patient education folder for contact #) [x] Refer to [facility]'s [facility] Booklet Call your doctor immediately for: * Fever > 100.5 * Heavy vaginal bleeding ( >1 pad per hour) * Severe persistent headache * Shortness of breath * Reddened, hot, painful area to leg or breast * Follow up with: JOE GARIBAY MD [Staff Physician] - 7 Days (Please call your OB office for worsening symptoms or to schedule an appointment. ) PRIMARY CAREMD [Primary Care Provider] - 3-5 Days (Please schedule a follow up appointment with your primary care provider within 3-5 days. ) Forms: [facility] Discharge Summary Prescriptions: Amoxicillin/K Clav Tab [Augmentin 875 mg] 1 tab PO Q12HR #10 tab Ibuprofen [Motrin 800 MG tab] 800 mg PO TID PRN #30 tablet PRN Reason: Pain Sertraline [Zoloft] 50 mg PO QDAY #30 tablet Pending Studies doing well - Addendum Date: 02/13/21 Note: Summary is complete - Discharge Diagnoses (1) with sepsis Status: Acute (2) Anxiety Status: Chronic
== END 2021-01-15 15:00 | disposition home or self-care (01) | DRG 779 ==
LOC: ED 09:46 → OR 16:00 → OB 16:36
PROVIDERS: ADMIT Obstetrics & Gynecology; ATTEND Obstetrics & Gynecology
PROC: 0U7C0ZZ Dilation of Cervix, Open Approach (ICD-10-PCS; principal; 2021-01-13)
PROC: 10D17Z9 Manual Extraction of Products of Conception, Retained, Via Natural or Artificial Opening (ICD-10-PCS; 2021-01-13)
DX: O03.9 Complete or unspecified spontaneous abortion without complication (principal); Z68.43 Body mass index [BMI] 50.0-59.9, adult; F41.9 Anxiety disorder, unspecified; O03.87 Sepsis following complete or unspecified spontaneous abortion; O99.011 Anemia complicating pregnancy, first trimester; O99.511 Diseases of the respiratory system complicating pregnancy, first trimester; J45.909 Unspecified asthma, uncomplicated; D64.9 Anemia, unspecified; Z91.013 Allergy to seafood; Z3A.01 Less than 8 weeks gestation of pregnancy
CPT/HCPCS: 36415; 74177; 76801; 76817; 76830; 80053; 81001; 82140; 82550; 83690; 83735; 84702; 85025; 86850; 86900; 86901; 87040; 87075; 87086; 87116; 87591; 88305; 96365; G0378; J1100; J1170; J2210; J2405; J2543; J7120; Q9967